=== PATIENT | female | born 1985 ===

== ENCOUNTER 2024-08-13 21:22 | Emergency (ER) | payer OTHER ==
[~2024-08-13] VITALS: Ht 162.6 cm; Wt 72.7 kg
[2024-08-13 21:27] VITALS: TEMP 98.7
[2024-08-13] MEDS: SULFAMETHOX/TRIMETH DS 800-160 MG/TABLET PO ONE (22:18)
[2024-08-13] MEDS: AmLODIPine BESYLATE 5 MG TABLET PO ONE ×2 (22:18→23:17)
[2024-08-13] MEDS: CEPHALEXIN MONOHYDRATE 500 MG CAPSULE PO ONE (22:18)
[2024-08-13] MEDS: CloNIDine HCL 0.1 MG TABLET PO ONE (22:18)
[2024-08-13] MEDS: LIDOCAINE 1% 10 ML VIAL SQ ONE (22:19)
[2024-08-14] MEDS: CloNIDine HCL 0.1 MG TABLET PO ONE (00:12)
[2024-08-14] MEDS: HYDROCHLOROTHIAZIDE 25 MG TABLET PO ONE (00:12)
[2024-08-14] MEDS ORDERED: SULF-261 PO (01:10)
[2024-08-14] MEDS ORDERED: AMLO-257 PO (01:10)
[2024-08-14] MEDS ORDERED: HYDR25TA2 PO (01:10)
[2024-08-14] MEDS ORDERED: CEPH-558 PO (01:11)
[2024-08-14 01:12] VITALS: BP 164/108; PULSE 84; RESP 16; O2SAT 98
== END 2024-08-14 01:32 | disposition home or self-care (01) ==
LOC: EMS 21:22
DX: L02.212 Cutaneous abscess of back [any part, except buttock and flank] (principal); I10 Essential (primary) hypertension; F12.90 Cannabis use, unspecified, uncomplicated
CPT/HCPCS: 99285; 10060; J3490